=== PATIENT | female | born 1985 ===

== ENCOUNTER 2018-09-02 11:54 | Inpatient (IN) ==
[2018-09-02] MEDS ORDERED: LACTATED RINGER'S 1,000 ML IV PRN ×2 (12:45→23:04)
[2018-09-02] MEDS ORDERED: OXYTOCIN 30 UNITS/500 ML BAG IV PRN ×2 (12:45→23:04)
--- NOTE | 2018-09-02 12:54 | History & Physical Report ---
Date of Service September 02, 2018 Assessment & Plan (1) Premature rupture of membranes: 33 yo at 38.4 wks with PROM/ SROM, not in labor Elevated BP, no proteinuria FHR reassuring GBS negative Plan admit, monitor, labs Discussed IOL at term with PROM with decreased risk of intraamniotic infection Start with PO Cytotec for ripening and then AROM All questions were answered History of Present Illness Chief Complaint: Leaking fluids Primary Care Provider: Jorge Blanco MD Patient is a 33 yo at 38.4 wks who started to feel leaking of fluids this morning around 9 am She had a big gush in the office and sent her for gross SROM No ctxs/ VB +FM's No fever/ chills/ N&V/ CP/SOB/ [place] She had been followed by intermittent elevated BP's No proteinuria Blood works and 24 hour urine protein were normal/ WNL No medical problems GBS negative Allergies Allergy/AdvReac Type Severity Reaction Status Date / Time prednisone Allergy Severe low pulse Verified 09/02/18 12:38 rate Penicillins Allergy Intermediate rash Verified 09/02/18 12:38 Home Medications Home Medications Medication Instructions Recorded Confirmed Type PNV cmb#95-ferrous fumarate-FA 1 tab PO DAILY 02/13/18 09/02/18 History [] iron 27 mg PO DAILY 02/13/18 09/02/18 History calcium carbonate [Calcium 600] 600 mg PO DAILY 08/25/18 09/02/18 History Patient History Medical History H/O wisdom tooth extraction Kidney, horseshoe No significant medical problems Surgical History History of appendectomy Social History Preferred Language: Romansh Communication Ability: Effective 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 Beliefs That Will Affect Care: None marital status: Current Living Situation: Spouse Other Information That Helps Us Care for You: No Feels Safe at Home: Yes Safety Concerns: Feels Safe At This Time Smoking Status: Never smoker Hx Alcohol Use: No Hx Substance Use: No 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 Calixto) Bed side US: vertex, FHR 130's Monitoring External Monitor Categ I
[2018-09-02] MEDS ORDERED: miSOPROStol 50 MCG TAB PO ONE (13:00)
[2018-09-02 13:19] LABS: Hematocrit (blood only) 36.3 % (37-47); Hemoglobin 12.4 g/dL (12.0-16.0); Mean Corpuscular Volume 87.9 fL (80-100); Mean Platelet Volume 11.8 fL (7.4-10.4); Platelet Count 195 K/uL (130-400); RDW Standard Deviation 44.8 fL (36.4-46.3); Red Blood Count 4.13 M/uL (4.2-5.4); White Blood Count 8.49 K/uL (4.8-10.8)
[2018-09-02 13:21] LABS: Mean Corpuscular Hgb Conc 34.2 g/dL (32-36)
[2018-09-02 13:39] LABS: Albumin Level 2.8 gm/dl (3.4-5.0); BUN Creatinine Ratio 12.5 (10-20); Calcium 9.6 mg/dl (8.5-10.1); Creatinine Clr Calc Pharmacy 106.3 ml/min; Est GFR (African American) 122.2; Est GFR (Non-African American) 105.5; Potassium 4.5 mmol/L (3.5-5.1)
[2018-09-02 13:41] LABS: Albumin Globulin Ratio 0.6 (0.9-2); Bilirubin,Total 0.3 mg/dl (0.2-1); Globulin 4.5 gm/dl (2.5-4.0); Total Protein 7.3 gm/dl (6.4-8.2)
[2018-09-02] MEDS: LACTATED RINGER'S 1,000 ML IV SCH (19:38)
--- NOTE | 2018-09-02 19:39 | Obstetrical Progress Note ---
Date of Service September 02, 2018 Subjective Patient is reevaluated Started to feels ctxs around 4 pm Getting closer and more painful Pain is 7-8/10, breathing through them Declined pain meds VSS Afebrile FHR categ I [place] ctxs q 2-4 min, palpates moderate to strong, she seems uncomfortable Plan to observe, monitor, hold 2nd dose of Cytotec for now and reevaluate Physical Exam Vital Signs (Past 24 Hours): Last Vital Signs Temp 36.8 C 09/02/18 18:27 Pulse 92 H 09/02/18 18:28 Resp 22 09/02/18 18:27 BP 150/94 H 09/02/18 18:28
[2018-09-02] MEDS: BUTORPHANOL TARTRATE 2 MG/ML VIAL IV PRN ×2 (19:57→23:36)
--- NOTE | 2018-09-02 23:23 | Obstetrical Progress Note ---
Date of Service September 02, 2018 Subjective Patient is reevaluated She took Stadol at 8 pm and slept until recently Now woke up with ctxs, they are painful Her cervix was the same at 8 pm Declines VE VSS Afebrile FHR categ I [place] ctxs q 2-4 min, palpate strong, she is breathing with them Desires another dose of Stadol Will start AB for prolonged ROM, anticipating long labor Allergic to PCN, mild rash Used Amoxicillin with no problems Will start Cefazolin Physical Exam Vital Signs (Past 24 Hours): Last Vital Signs Temp 36.5 C 09/02/18 21:59 Pulse 74 09/02/18 21:07 Resp 16 09/02/18 21:59 BP 124/80 09/02/18 21:07
[2018-09-03] MEDS: CEFAZOLIN 2000MG 2,000 MG/15 ML SYR IV SCH ×3 (00:08→15:56)
[2018-09-03] MEDS: LACTATED RINGER'S 1,000 ML IV SCH ×3 (03:20→15:55)
[2018-09-03] MEDS ORDERED: BUPIVACAINE 0.25% 30 ML VIAL ONE (04:53)
[2018-09-03] MEDS ORDERED: fentaNYL citrate 100 MCG/2 ML VIAL ONE (04:53)
[2018-09-03] MEDS ORDERED: ePHEDrine sulfate 50 MG/ML AMP ONE (04:53)
[2018-09-03] MEDS ORDERED: fentaNYL 2MCG/ML ROPIV 1.25MG/ML 100 ML BAG EPI ONE (04:54)
[2018-09-03] MEDS ORDERED: CALCIUM CARBONATE 500 MG CHEWABLE TAB ONE (06:00)
[2018-09-03] MEDS ORDERED: PROMETHAZINE HCL 6.25 MG in SODIUM CHLORIDE 0.9% 50 ML IV PRN (06:07)
[2018-09-03] MEDS ORDERED: ePHEDrine sulfate 50 MG/ML AMP IV PRN (06:07)
[2018-09-03] MEDS ORDERED: DiphenhydrAMINE HCL 50 MG/ML VIAL IV PRN (06:07)
[2018-09-03] MEDS ORDERED: NALBUPHINE HCL INJ 10 MG/ML AMP IV PRN (06:07)
[2018-09-03] MEDS ORDERED: NALOXONE HCL 1 MG in SODIUM CHLORIDE 0.9% 1000ML 1,000 ML IV PRN (06:07)
[2018-09-03] MEDS ORDERED: NALOXONE HCL 0.4 MG/1 ML VIAL/CARP IV PRN (06:07)
[2018-09-03] MEDS ORDERED: LACTATED RINGER'S 1,000 ML IV PRN (06:07)
[2018-09-03] MEDS ORDERED: ONDANSETRON INJ 2 MG/ML 2 ML VIAL IV PRN (06:07)
[2018-09-03] MEDS ORDERED: fentaNYL 2MCG/ML ROPIV 1.25MG/ML 100 ML BAG EPI PRN (06:07)
--- NOTE | 2018-09-03 06:07 | Anesthesiology Consultation ---
Date of Service September 03, 2018 Assessment & Plan (1) Encounter for pre-operative examination: Chart Review Chart Review: Patient NOT seen in Pre Admission Testing and Acceptable Risk for Labor Epidural Consults Requested none ASA ASA2 Proposed Anesthesia Anesthesia Type: Labor Epidural Risk / Benefits Reviewed With: PT / POA / Parent / Guardian, Accepts Plan and Informed Consent Obtained NPO Date Last Intake of Fluids: 09/03/18 Time Last Intake of Fluids: 05:00 Date Last Intake of Solids: 09/02/18 Time Last Intake of Solids: 18:00 History Height/Weight Height: 5 ft 5 in Weight: 70.76 kg Allergies Allergy/AdvReac Type Severity Reaction Status Date / Time prednisone Allergy Severe low pulse Verified 09/02/18 12:38 rate Penicillins Allergy Intermediate rash Verified 09/02/18 12:38 Medications Home Medications Medication Instructions Recorded Confirmed Last Taken PNV cmb#95-ferrous fumarate-FA 1 tab PO DAILY 02/13/18 09/02/18 09/01/18 21:30 [] iron 27 mg PO DAILY 02/13/18 09/02/18 09/01/18 21:30 calcium carbonate [Calcium 600] 600 mg PO DAILY 08/25/18 09/02/18 09/01/18 21:30 Active Medications Generic Name Dose Route Start Last Admin Trade Name Freq PRN Reason Stop Dose Admin Butorphanol Tartrate 1 mg 09/02/18 19:42 09/02/18 23:36 Stadol IV 10/02/18 19:41 1 mg Q3HWA PRN Administration Pain Lactated Ringer's 1,000 mls @ 150 mls/hr 09/02/18 12:45 09/03/18 03:20 Lr IV 09/04/18 12:44 150 mls/hr .Q6H40M TAYLOR Administration Oxytocin 30 units in 500 mls @ 6 mls/hr 09/02/18 23:04 09/03/18 04:30 Pitocin IV 09/04/18 23:03 0.36 units/hr .Q24H PRN 6 mls/hr Labor Induction/Augmentation Titration Protocol 0.36 UNITS/HR Cefazolin Sodium 2,000 mg in 15 mls @ 3.75 mls/min 09/03/18 00:00 09/03/18 00:08 Ancef 2000mg IV 09/13/18 00:00 3.75 mls/min Q8H TAYLOR Administration Past Medical History Medical History H/O wisdom tooth extraction Kidney, horseshoe No significant medical problems Past Surgical History Surgical History History of appendectomy Social History Smoking Status: Never smoker Hx Alcohol Use: No Hx Substance Use: No Physical Exam Vital Signs Last Vital Signs Temp 36.7 C 09/03/18 05:12 Pulse 100 H 09/03/18 06:02 Resp 18 09/03/18 05:12 BP 125/81 09/03/18 06:02 Pulse Ox 96 09/03/18 06:02 ENMT Mouth: no TMJ abnormality Thyromental Distance: > or= 3.5 Finger Breadths Mallampati Class: II Neck normal visual inspection Respiratory normal respiratory effort Cardiovascular Rate/Rhythm: regular rate and regular rhythm Neurologic moves all extremities Psychiatric Orientation: alert Testing Laboratory Results 09/02/18 13:01 09/02/18 13:01
[2018-09-03] MEDS ORDERED: CALCIUM CARBONATE 500 MG CHEWABLE TAB PO PRN (06:26)
--- NOTE | 2018-09-03 17:38 | Obstetrical Progress Note ---
Date of Service September 03, 2018 Physical Exam Vital Signs (Past 24 Hours): Last Vital Signs Temp 37.7 C H 09/03/18 15:01 Pulse 104 H 09/03/18 17:32 Resp 20 09/03/18 15:01 BP 135/88 09/03/18 17:32 Pulse Ox 92 09/03/18 17:32 Genitourinary: OB Exam Abdomen: + regular contractions Manual OB Exam: + cervical dilation 9 cm, + cervical effacement 100%, + station -2 and + amniotic fluid clear OB Exam Monitor Tracing: + external FHT monitor used, + external uterine monitor used and + variable decelerations
--- NOTE | 2018-09-03 20:08 | Obstetrical Progress Note ---
Date of Service September 03, 2018 Physical Exam Vital Signs (Past 24 Hours): Last Vital Signs Temp 37.0 C 09/03/18 19:15 Pulse 113 H 09/03/18 20:03 Resp 18 09/03/18 19:30 BP 144/94 H 09/03/18 20:03 Pulse Ox 100 09/03/18 20:02 Genitourinary: Manual OB Exam: + cervical dilation 10 cm, + cervical effacement 100% and + station -2 OB Exam Monitor Tracing: + category I will start to push
[2018-09-03] MEDS: OXYTOCIN 30 UNITS/500 ML BAG IV PRN ×2 (21:41→22:12)
[2018-09-03] MEDS ORDERED: BENZOCAINE 20% AER SPR 82.5 GM CAN EXT PRN (21:58)
[2018-09-03] MEDS ORDERED: DIPHTHERIA/TETANUS/PERTUSSIS 0.5 ML SYR/VIAL IM ONE (21:58)
[2018-09-03] MEDS ORDERED: HYDROCORTISONE ACETATE 25 MG SUPP PR PRN (21:58)
[2018-09-03] MEDS ORDERED: SUPERCREAM 0.870% 15 GM JAR EXT PRN (21:58)
[2018-09-03] MEDS ORDERED: BISACODYL 10 MG SUPP PR PRN (21:58)
--- NOTE | 2018-09-03 22:04 | Procedure Note ---
Vaginal Delivery Summary Date of Service September 03, 2018 Delivery note live male over intact perineum JUVE with nuchal cord x1 reduced at delivery. Delayed cord clamping with Apgars 7/9 weight pending. Cord blood obtained followed by delivery of intact placenta. Second degree tear repaired with 3/0 Vicryl suture. EBL 250 ml. Final sponge needle and instrument count are correct. Mom and baby stable.
[2018-09-03] MEDS: IBUPROFEN 600 MG TAB PO PRN (22:27)
--- NOTE | 2018-09-03 22:32 | Anesthesia Procedure Note ---
Date of Service September 03, 2018 Anesthesia Post Epidural Note Vital Signs Vital Signs: Temp Pulse Resp BP Pulse Ox 36.9 C 113 H 18 160/86 H 100 09/03/18 22:01 09/03/18 22:27 09/03/18 22:01 09/03/18 22:17 09/03/18 22:27 Notes Mental Status: alert / awake / arousable Patient Amnestic to Procedure: No Nausea / Vomiting: adequately controlled Pain: adequately controlled Airway Patency, RR, SpO2: stable & adequate BP & HR: stable & adequate Hydration State: stable & adequate Neuraxial Anesthesia: was administered and sensory block is resolving Anesthetic Complications: no major complications apparent and Pt Satisfied with anesthetic care Epidural: Removed without complications and With tip intact
[2018-09-04] MEDS: ACETAMINOPHEN 325 MG TAB PO PRN ×2 (02:21→14:55)
[2018-09-04 08:18] LABS: Hemoglobin 10.3 g/dL (12.0-16.0); Mean Corpuscular Hgb Conc 34.3 g/dL (32-36); Mean Corpuscular Volume 88.5 fL (80-100); Mean Platelet Volume 11.9 fL (7.4-10.4); Platelet Count 165 K/uL (130-400); RDW Coefficient of Variation 14.2 % (11.5-14.5); RDW Standard Deviation 45.8 fL (36.4-46.3); Red Blood Count 3.39 M/uL (4.2-5.4); White Blood Count 14.22 K/uL (4.8-10.8)
[2018-09-04] MEDS ORDERED: NON-FORMULARY MEDICATION (Pnv Cmb#95-Ferrous Fumarate-Fa [Prenatal] 1 TAB) PO SCH (09:00)
[2018-09-04] MEDS ORDERED: PRENATAL VITAMIN 1 TAB PO SCH (09:00)
[2018-09-04] MEDS ORDERED: FERROUS GLUCONATE 324 MG TAB PO SCH (09:00)
[2018-09-04] MEDS: IBUPROFEN 600 MG TAB PO PRN ×2 (10:04→19:41)
[2018-09-04] MEDS: DOCUSATE SODIUM 100 MG CAP PO SCH ×2 (10:04→19:41)
--- NOTE | 2018-09-04 10:16 | Obstetrical Progress Note ---
Date of Service September 04, 2018 Subjective Ambulation: ambulating normally Voiding: no voiding problems Passing Gas:: Yes Diet Tolerance:: regular diet Lochia:: Small Feeding Type:: breast feeding Review of Systems All systems reviewed & are unremarkable except as noted in HPI & below Physical Exam Vital Signs (Past 24 Hours) Last Vital Signs Temp 36.5 C 09/04/18 08:30 Pulse 73 09/04/18 08:30 Resp 18 09/04/18 08:30 BP 122/76 09/04/18 08:30 Pulse Ox 100 09/04/18 08:30 Constitutional WD/WN, vitals as above well developed and well nourished Eyes PERRL, conjunctivae normal, anicteric sclerae Neck trachea midline, no thyromegaly Respiratory normal respiratory effort, lungs clear to auscultation Auscultation: no crackles, no rales and no wheezes Cardiovascular RRR, no murmur, no edema Gastrointestinal (Abdomen) normal bowel sounds, soft, nontender, no hepatosplenomegaly Uterus is below umbilicus Musculoskeletal no cyanosis or clubbing, extremities motor strength 5/5 Skin no rashes, warm and dry Neurologic patellar DTR's 2+ bilat, sensation intact Psychiatric A+Ox3, euthymic affect Genitourinary normal external appearance
[2018-09-04] MEDS: CALCIUM 600MG + VIT D 400 IU TAB PO SCH ×2 (11:22→11:34)
[2018-09-04] MEDS ORDERED: BISACODYL 5 MG TABEC PO SCH (20:00)
--- NOTE | 2018-09-04 22:24 | Obstetrical Progress Note ---
Date of Service September 04, 2018 Assessment & Plan (1) Normal course: PPD #1 pt doing well no complaints anticipate disch tomorrow Subjective Ambulation: ambulating normally Voiding: no voiding problems Passing Gas:: Yes Diet Tolerance:: regular diet Lochia:: Small Feeding Type:: breast feeding Review of Systems All systems reviewed & are unremarkable except as noted in HPI & below Physical Exam Vital Signs (Past 24 Hours) Last Vital Signs Temp 36.5 C 09/04/18 19:25 Pulse 87 09/04/18 19:25 Resp 18 09/04/18 19:25 BP 142/85 H 09/04/18 19:25 Pulse Ox 99 09/04/18 19:25 Constitutional WD/WN, vitals as above well developed and well nourished Eyes PERRL, conjunctivae normal, anicteric sclerae Neck trachea midline, no thyromegaly Respiratory normal respiratory effort, lungs clear to auscultation Auscultation: no crackles, no rales and no wheezes Cardiovascular RRR, no murmur, no edema Gastrointestinal (Abdomen) normal bowel sounds, soft, nontender, no hepatosplenomegaly Uterus is below umbilicus Musculoskeletal no cyanosis or clubbing, extremities motor strength 5/5 Skin no rashes, warm and dry Neurologic patellar DTR's 2+ bilat, sensation intact Psychiatric A+Ox3, euthymic affect Genitourinary normal external appearance
[2018-09-05 08:15] LABS: Hematocrit (blood only) 30.5 % (37-47); Hemoglobin 10.3 g/dL (12.0-16.0)
--- NOTE | 2018-09-05 09:43 | Obstetrical Progress Note ---
Date of Service September 05, 2018 Subjective Patient is seen and examined. She feels well, no complaints. Ambulating without dizziness Voiding without difficulty Tolerating regular diet with out N&V Bleeding is minimal No fever/ chills/ CP/ SOB/ N&V/ Leg pain Breast feeding without problems Vital Signs Temp Pulse Resp BP Pulse Ox 09/05/18 07:45 36.6 C 82 18 134/89 99 09/05/18 00:05 36.4 C L 73 18 132/82 99 09/04/18 19:25 36.5 C 87 18 142/85 H 99 09/04/18 15:45 36.5 C 87 18 134/82 99 09/04/18 11:45 36.4 C L 86 18 135/85 99 09/05/18 Range/Units 07:40 Hgb 10.3 L (12.0-16.0) g/dL Hct 30.5 L (37-47) % PE: General: Alert, orientedx3, NAD Abd: soft, NT, fundus firm, below Umbilicus Perineum intact, Lochia rubra minimal Ext; NT, no edema AP: 33 yo s/p , ppd# 2 VSS Afebrile doing well Continue routine care All questions were answered D/C home , f/u in office Physical Exam Vital Signs (Past 24 Hours): Last Vital Signs Temp 36.6 C 09/05/18 07:45 Pulse 82 09/05/18 07:45 Resp 18 09/05/18 07:45 BP 134/89 09/05/18 07:45 Pulse Ox 99 09/05/18 07:45
[2018-09-05] MEDS: IBUPROFEN 600 MG TAB PO PRN (13:42)
== END 2018-09-05 13:45 | disposition home or self-care (01) | DRG 807 ==
LOC: 4S1 11:54 → 4S2 09-04 01:01